=== PATIENT | female | born 1960 | race Caucasian/White ===

== ENCOUNTER 2019-08-08 00:44 | Emergency (ER) | payer SELFPAY ==
[~2019-08-08] VITALS: Ht 154.9 cm; Wt 91.2 kg
[2019-08-08] MEDS ORDERED: KETOROLAC 30MG/ML VIAL IV STA (02:34)
[2019-08-08] MEDS ORDERED: ONDANSETRON HCL 4MG/2ML INJ IV ONE (02:45)
[2019-08-08] MEDS ORDERED: SODIUM CHLORIDE 0.9% 1000ML BAG (SEPSIS BOLUS) IV ONE (02:45)
[2019-08-08 03:06] LABS: CLARITY URINE CLOUDY (CLEAR); COLOR URINE DARK YELLOW (YELLOW); KETONES URINE 2+ (NEGATIVE); LEUKOCYTE ESTERASE URINE TRACE (NEGATIVE); NITRITE URINE NEGATIVE (NEGATIVE); OCCULT BLOOD URINE NEGATIVE (NEGATIVE); PROTEIN URINE 1+ (NEGATIVE); SPECIFIC GRAVITY URINE 1.029 (1.005-1.030)
[2019-08-08] MEDS ORDERED: CEFTRIAXONE 1 G PREMIX 50 ML IV SCH (04:30)
[2019-08-08] MEDS ORDERED: METOCLOPRAMIDE HCL 10MG/2ML VIAL IV ONE (06:15)
[2019-08-08] MEDS ORDERED: ACETAMINOPHEN 500MG TABLET PO ONE (06:15)
[2019-08-08] MEDS ORDERED: DIPHENHYDRAMINE 50MG/ML VIAL IV ONE (06:30)
[2019-08-08 07:31] VITALS: BP 128/56
== END 2019-08-08 07:31 | disposition home or self-care (01) ==
LOC: ER 00:44
DX: J10.1 Influenza due to other identified influenza virus with other respiratory manifestations (principal); N39.0 Urinary tract infection, site not specified; I10 Essential (primary) hypertension; Z98.890 Other specified postprocedural states
CPT/HCPCS: 70450; 71045; 81003; 87804; 96365; 96375; 99284; J0696; J1200; J1885; J2405; J2765; J7030

== ENCOUNTER 2023-10-14 18:22 | Emergency (ER) | payer SELFPAY ==
[~2023-10-14] VITALS: Ht 157.5 cm; Wt 64.0 kg
[2023-10-14 18:32] VITALS: O2SAT 99
[2023-10-14 19:54] LABS: BASOPHILS % 0.4 % (0.0-2.0); HEMATOCRIT. 39.3 % (36.0-48.0); HEMOGLOBIN. 13.7 g/dL (12.0-16.0); LYMPHOCYTES % 28.6 % (20.0-50.0); MEAN CORPUSCULAR HEMOGLOBIN 34.6 pg (28.0-32.0); MEAN CORPUSCULAR HGB CONC 34.8 g/dL (31.0-37.0); MEAN CORPUSCULAR VOLUME 99.4 fL (81.0-99.0); MEAN PLATELET VOLUME 9.3 fl (7.4-10.4); MONOCYTES % 8.1 % (2.0-8.0); NEUTROPHILS % 61.9 % (40.0-76.0); PLATELET 80 x1000/uL (130-400); RED BLOOD CELL COUNT 3.95 mill/uL (4.2-5.4); WHITE BLOOD COUNT 3.5 x1000/uL (4.5-11.0)
[2023-10-14 20:09] LABS: ALANINE AMINOTRANSFERASE 26 IU/L (10-49); ALBUMIN 4.3 g/dL (3.2-4.8); ASPARTATE AMINOTRANSFERASE 41 IU/L (<34); BILIRUBIN TOTAL 0.8 mg/dL (0.1-1.0); CALCIUM 9.2 mg/dL (8.7-10.4); CARBON DIOXIDE 28 mEq/L (21-32); CHLORIDE 104 mEq/L (98-107); CREATININE 0.6 mg/dL (0.6-1.0); GLUCOSE 96 mg/dL (70-105); POTASSIUM 3.8 mEq/L (3.5-5.1); PROTEIN TOTAL 8.8 g/dL (6.0-8.3); SODIUM 137 mEq/L (136-145); UREA NITROGEN BLOOD 8 mg/dL (9-23)
[2023-10-14 20:10] LABS: TROPONIN I HIGH SENSITIVITY < 4 ng/L (3.0-34)
[2023-10-14 22:39] LABS: D-DIMER 1.56 mg/L FEU (<0.50); INR 1.1; PARTIAL THROMBOPLASTIN TIME 27.9 sec (23.4-31.0); PROTHROMBIN TIME 11.9 sec (9.6-11.0)
[2023-10-14 23:35] LABS: CLARITY URINE CLEAR (CLEAR); COLOR URINE DARK YELLOW (YELLOW); GLUCOSE URINE NEGATIVE (NEGATIVE); KETONES URINE NEGATIVE (NEGATIVE); LEUKOCYTE ESTERASE URINE TRACE (NEGATIVE); NITRITE URINE NEGATIVE (NEGATIVE); OCCULT BLOOD URINE NEGATIVE (NEGATIVE); PH URINE 5.5 (4.5-8.0); PROTEIN URINE TRACE (NEGATIVE); SPECIFIC GRAVITY URINE 1.029 (1.005-1.030)
[2023-10-15] MEDS ORDERED: IOHEXOL-350 100 ML BOTTLE ONE (00:38)
[2023-10-15 03:42] LABS: SQUAMOUS EPITHELIAL CELL URINE 1+ /lpf (RARE/1+)
[2023-10-15 03:43] LABS: RBC URINE 0-2 /hpf (0-2); WBC URINE 0-2 /hpf (0-2)
[2023-10-15 03:44] LABS: BACTERIA URINE 1+
[2023-10-15 06:44] VITALS: BP 137/66; PULSE 66; RESP 16; TEMP 98.6
== END 2023-10-15 06:52 | disposition home or self-care (01) ==
LOC: ER 18:22
DX: R07.9 Chest pain, unspecified (principal); I10 Essential (primary) hypertension; Z98.890 Other specified postprocedural states
CPT/HCPCS: 99285; 71275; 80053; 81003; 83880; 85025; 85379; 85610; 85730; 84484; 36415; 93005; 71045; Q9967

== ENCOUNTER 2025-08-04 21:17 | Emergency (ER) | payer BC, MEDICAID ==
[~2025-08-04] VITALS: Ht 165.1 cm; Wt 72.0 kg
[2025-08-04 22:30] VITALS: O2SAT 99
[2025-08-04] MEDS ORDERED: CETI10CA11 MT (23:46)
[2025-08-05 00:16] VITALS: BP 165/69; PULSE 82; RESP 16; TEMP 36.8; O2SAT 95
== END 2025-08-05 00:17 | disposition home or self-care (01) ==
LOC: ER 21:17
DX: R04.0 Epistaxis (principal); I10 Essential (primary) hypertension; R51.9 Headache, unspecified
CPT/HCPCS: 99283